=== PATIENT | male | born 1995 | race Caucasian/White ===

== ENCOUNTER 2019-09-02 21:39 | Emergency (ER) | payer BC ==
[~2019-09-02] VITALS: Ht 182.9 cm; Wt 93.0 kg
[2019-09-02 21:41] VITALS: BP 144/64
--- NOTE | 2019-09-02 22:35 | REPVR ---
PROCEDURE INFORMATION: Exam: CT Head Without Contrast Exam date and time: 09/02/2019 10:05 PM Age: 23 years old Clinical indication: Injury or trauma; Fall; Initial encounter; Blunt trauma (contusions or hematomas); Additional info: Head injury with blurry vision and nausea TECHNIQUE: Imaging protocol: Computed tomography of the head without contrast. Radiation optimization: All CT scans at this facility use at least one of these dose optimization techniques: automated exposure control; mA and/or kV adjustment per patient size (includes targeted exams where dose is matched to clinical indication); or iterative reconstruction. COMPARISON: No relevant prior studies available. FINDINGS: Brain: Normal. No hemorrhage. Unremarkable white matter. No mass effect. Ventricles: Normal. No ventriculomegaly. Bones/joints: Unremarkable. No acute fracture. Sinuses: Visualized sinuses are unremarkable. No fluid levels. Mastoid air cells: Visualized mastoid air cells are well aerated. Soft tissues: Unremarkable. IMPRESSION: No acute intracranial abnormality. Electronically signed by: Rina Dash On 09/02/2019 22:37:05 PM
== END 2019-09-02 22:59 | disposition home or self-care (01) ==
LOC: M ED 21:39
DX: S09.90XA Unspecified injury of head, initial encounter (principal); W22.8XXA Striking against or struck by other objects, initial encounter; Y92.013 Bedroom of single-family (private) house as the place of occurrence of the external cause; Z88.0 Allergy status to penicillin